=== PATIENT | female | born 1945 | race Caucasian/White ===

== ENCOUNTER → 2017-06-08 | Outpatient (CLI) | payer OTHER, MEDICARE ==
--- NOTE | 2017-06-08 10:35 | REPMRS ---
Patient History The patient states she had a clinical breast exam in 05/31 Patient is postmenopausal. Family history of colorectal cancer in sister, breast cancer in mother, and ovarian cancer in maternal cousin. Digital Woman Screen Mammo: June 08, 2017 - Exam #: [id number] Bilateral CC and MLO view(s) were taken. Technologist: Maya Winchester, Technologist Prior study comparison: June 07, 2016, digital woman screen mammo performed at [facility]. June 06, 2015, digital woman screen mammo performed at [facility] to [facility]. FINDINGS: There are scattered fibroglandular densities. There has been no change in the appearance of the mammogram from the prior studies. There is a mild amount of residual fibroglandular tissue which is fairly symmetric. There is no interval development of dominant mass, architectural distortion, or clustered microcalcification suggestive of malignancy. ASSESSMENT: BI-RADS/ACR category 1 mammogram. Negative. Recommendation Routine screening mammogram in 1 year (for women over age 40). This mammogram was interpreted with the aid of an FDA-approved computer-aided dectection system. Electronically Signed By: Conor Givens MD 06/08/17 [id number]
== END ==
LOC: M WHC 09:45
PROVIDERS: ATTEND Nurse Practitioner Family
DX: Z12.31 Encounter for screening mammogram for malignant neoplasm of breast (principal)

== ENCOUNTER → 2018-12-28 | Outpatient (CLI) | payer OTHER, MEDICARE ==
--- NOTE | 2018-12-28 11:46 | REPMRS ---
Patient History The patient states she had a clinical breast exam in 12/2018. Family history of breast cancer in mother, colorectal cancer in sister, ovarian cancer in maternal cousin. Digital Woman Screen Mammo: December 28, 2018 - Exam #: [id number] Bilateral CC and MLO view(s) were taken. Technologist: Maya Winchester, Technologist Prior study comparison: June 08, 2017, digital woman screen mammo performed at [facility]. June 07, 2016, digital woman screen mammo performed at [facility]. June 06, 2015, digital woman screen mammo performed at [facility]. FINDINGS: There are scattered fibroglandular densities. There has been no change in the appearance of the mammogram from the prior studies. There is a mild amount of scattered fibroglandular density which is fairly symmetric. There is no interval development of dominant mass, architectural distortion, or clustered microcalcification suggestive of malignancy. 3-D tomosynthesis shows no additional findings. Assessment: BI-RADS/ACR category 1 mammogram. Negative Mammogram. Recommendation Routine screening mammogram of both breasts in 1 year (for women over age 40). This patient's Lifetime Breast Cancer RIsk is estimated at 7.3 %. This mammogram was interpreted with the aid of an FDA-approved computer-aided dectection system. Electronically Signed By: Charlie Chen MD 12/28/18 [id number]
== END ==
LOC: M WHC 09:52
PROVIDERS: ATTEND Nurse Practitioner Family
DX: Z12.31 Encounter for screening mammogram for malignant neoplasm of breast (principal)

== ENCOUNTER → 2020-02-07 | Outpatient (CLI) | payer BC, MEDICARE ==
[~2020-02-07] MED LIST: ISOVUE-370 76% 100ML VIAL As Ordered ONE
--- NOTE | 2020-02-07 16:56 | REP ---
CT ABDOMEN PELVIS WITH IV BUT WITHOUT ORAL CONTRAST: HISTORY: Periumbilical pain. No comparison CT study. CT CONTRAST DOSE: 100 mL of intravenous Isovue 370. CT FINDINGS: Digital preliminary enterprise mobility architect radiograph demonstrates an unremarkable bowel gas pattern. The lung bases are clear on axial CT images. There is no evidence of diaphragmatic hernia. There is a tiny defect in the anterior abdominal wall in the epigastric region transmitting a small quantity of abdominal fat. The defect measures only 0.7 cm in right to left dimension. No other abdominal wall defect is appreciated. There is mild fatty infiltration of the liver with areas of fat sparing near the gallbladder. The spleen is unremarkable. No focal hepatic or splenic mass lesion is seen. No abnormality is noted in the pancreas. The gallbladder is unremarkable. Normal adrenal glands are seen bilaterally. The kidneys enhance symmetrically and are morphologically intact. Normal caliber abdominal aorta is seen. There is vascular calcification. No retroperitoneal mass or adenopathy is seen. Normal appendix is seen in the right lower quadrant. No free fluid mass or adenopathy is seen. The uterus is surgically absent. Urinary bladder is unremarkable. There is mild mural thickening in a single loop of jejunum in the left upper quadrant of the abdomen. This is of uncertain significance. No other area of small bowel or large bowel mural thickening is seen. No obstructive lesion is seen. No bony destructive lesion is observed. IMPRESSION: 1. Fatty infiltration of the liver. 2. Tiny defect in the epigastric anterior abdominal wall transmitting a small quantity of fat. 3. Mild mural thickening in a single short segment of proximal jejunum of uncertain significance. Consider small-bowel follow-through or follow-up CT enterography study. Electronically Signed by Orlando Chen MD 02/07/2020 05:01 P
== END ==
LOC: M RAD 14:58
PROVIDERS: ATTEND Internal Medicine Gastroenterology
DX: K76.0 Fatty (change of) liver, not elsewhere classified (principal)
CPT/HCPCS: 74177; Q9967

== ENCOUNTER → 2020-02-21 | Outpatient (CLI) | payer BC, MEDICARE ==
[~2020-02-21] MED LIST changes: +E-Z-PAQUE 96% w/w SUSP 176GM BTL As Ordered ONE; -ISOVUE-370 76% 100ML VIAL As Ordered ONE
--- NOTE | 2020-02-24 23:44 | REP ---
Examination Requested: SBFT Reason For Exam: Mild mural thickening of part of the jejunum on the CT dated 02/07/2020 Small Bowel Follow Through The procedure was performed by YARA Ba, under the direct supervision of Dr. Givens. The images were reviewed with Dr. Givens. The electrolytic etcher film shows no organomegaly or pathological masses. The intestinal gas pattern appears normal. The barium was administered and the barium column was followed through the small bowel to the level of the terminal ileum. Small bowel transit time was approximately 20 minutes. During fluoroscopy gentle palpation shows all loops are freely mobile and pliable. There are no fixed or angulated loops. The small bowel mucosal pattern is normal in course and caliber. There is no transition to suggest a partial small-bowel obstruction. Spot filming of the terminal ileum shows it to be unremarkable. Impression: 1. A small bowel transit time of 20 minutes. 2. Unremarkable imaging of the terminal ileum. 0.5 minutes of fluoroscopy time was utilized for this procedure. Some fluoroscopic images are performed with last image hold technology. These images require no additional radiation. Reviewed by YARA Chamorro 02/21/2020 01:19 P Electronically Signed by Conor Givens MD 02/24/2020 11:36 P
== END ==
LOC: M RAD 09:04
PROVIDERS: ATTEND Internal Medicine Gastroenterology
DX: R93.3 Abnormal findings on diagnostic imaging of other parts of digestive tract (principal)

== ENCOUNTER → 2021-04-08 | Outpatient (CLI) | payer BC, MEDICARE ==
--- NOTE | 2021-04-08 13:09 | REPMRS ---
Patient History The patient states she has not had a clinical breast exam in over a year. Family history of breast cancer in mother, colorectal cancer in sister, ovarian cancer in maternal cousin. Patient states no breast complaints today. Patient has signed MRS History Sheet. Digital Woman Screen Mammo: April 08, 2021 - Exam #: [id number] Bilateral CC and MLO view(s) were taken. Technologist: Ngoc Seay, Tilt Wall Supervisor Prior study comparison: January 02, 2020, bilateral digital woman screen mammo performed at [facility]. December 28, 2018, bilateral digital woman screen mammo performed at [facility]. June 08, 2017, digital woman screen mammo performed at [facility]. FINDINGS: There are scattered fibroglandular densities. The Volpara volumetric breast density category is:B. There has been no change in the appearance of the mammogram from the prior studies. There is a mild amount of scattered fibroglandular density which is fairly symmetric. There is no interval development of dominant mass, architectural distortion, or grouped microcalcification suggestive of malignancy. 3-D tomosynthesis shows no additional findings. Assessment: BI-RADS/ACR category 1 mammogram. Negative Mammogram. Recommendation Routine screening mammogram of both breasts in 1 year (for women over age 40). This patient's [facility] Lifetime Breast Cancer Risk is estimated at 6.5 %. This mammogram was interpreted with the aid of an FDA-approved computer-aided dectection system. Electronically Signed By: Charlie Chen MD 04/08/21 [id number]
== END ==
LOC: M WHC 12:16
PROVIDERS: ATTEND Physician Assistant
DX: Z12.31 Encounter for screening mammogram for malignant neoplasm of breast (principal)

== ENCOUNTER → 2024-01-24 | Outpatient (CLI) | payer MEDICARE | LOC: M WHC 12:01 | PROVIDERS: ATTEND Physician Assistant | DX: Z12.31 Encounter for screening mammogram for malignant neoplasm of breast (principal) ==